=== PATIENT | male | born 1980 | race Caucasian/White ===

== ENCOUNTER 2018-10-18 00:43 | Emergency (ER) | payer SELFPAY ==
[2018-10-18] MEDS ORDERED: KETOROLAC TROMETHAMINE 30 MG/ML SOL IM ONE (01:00)
[2018-10-18 01:05] VITALS: RESP 20
[2018-10-18] MEDS ORDERED: KETOROLAC TROMETHAMINE 30 MG/ML SOL ONE (01:05)
[2018-10-18 02:00] VITALS: BP 115/72; PULSE 62; TEMP 97.4; O2SAT 94
== END 2018-10-18 02:02 | DRG 103 ==
LOC: ED 00:43
DX: R51 Headache (principal); M54.9 Dorsalgia, unspecified; F15.90 Other stimulant use, unspecified, uncomplicated; H53.8 Other visual disturbances
CPT/HCPCS: 70450; 96372; 99283; J1885